=== PATIENT | female | born 1955 | race Caucasian/White ===

== ENCOUNTER 2016-08-19 08:15 | Emergency (ER) | payer BC ==
[~2016-08-19 08:15] MED LIST: IONAMIN DPS15 MG PO; LORTAB LIQUID D15 ML PO; OMEGA-3 DPS1000 MG PO; OMEPRAZOLE40 MG PO; RESTASIS1 EACH OU; TOPAMAX DPS25 MG PO; VOLTAREN50 MG PO; ZOCOR DPS10 MG PO; ZOFRAN8 MG PO
--- NOTE | 2016-09-18 21:14 | ER ---
ADMIT: 08/19/2016 RM/LOC: ER [facility] MR#: [id number] [address] [id number] MARCELINA PLEITEZ [address] [place] [address] Emergency Room Report SEX: F AGE: 60 : 1955 DATE: 08/19/2016 This 60-year-old female who was getting up to go to the bathroom and kitchen when she noticed the room was spinning with movement of her head. She called her daughter who apparently called the ambulance to pick her up. She denied headache. No change in vision. No numbness or tingling anywhere or loss of strength or coordination. Stated that the room was spinning around any time she moved her head rapidly. See T-sheet for history and physical. By the time she arrived in the Emergency Department, the symptoms were largely improved, however, they were reproducible to a lesser extent with rapid movement of her head. She was given meclizine and Zofran with rapid resolution of her complaints, subsequently discharged home. DIAGNOSIS: Vertigo and instructed to follow up with her doctor tomorrow. Anson Yanez MD/ martine JOB #: [id number] CC: Anson Yanez MD, Attending Physician UNKNOWN, Family Physician
== END 2016-08-19 09:39 | disposition home or self-care (01) ==
LOC: ER 08:15
DX: R42 Dizziness and giddiness (principal)

== ENCOUNTER 2016-10-24 09:22 | Emergency (ER) | payer BC ==
--- NOTE | 2016-10-24 15:08 | ER ---
ADMIT: 10/24/2016 RM/LOC: ER [facility] MR#: [id number] [id number] [place], [place] [address] MARCELINA PLEITEZ [address] [place] [address] Emergency Room Report SEX: F AGE: 60 : 1955 DATE: 10/24/2016 ADDENDUM: This 60-year-old morbidly obese, white female coming in with left hip pain. I keep saying right, it is left. She did not fall. She has no other associated trauma with this. This just continues to bother her even if she turns in bed at night. She has not fallen. On top of this, she also has significant stasis dermatitis of her lower legs bilaterally which is chronic. These swell, but she does not use any support hose or anything. It would probably be difficult for her to even do this. At this time, I did x-ray her left hip and it showed degenerative joint disease, also discussed this with the radiologist as it was a little bit difficult to determine whether it was an impacted fracture or this is all DJD. Radiologist thought it was DJD. She was also able to get up and ambulate with this as well. She was using Lortab or [place] from [employer] up in [place], but she is out of those and those have not helped her pain, so I gave her 20 Percocet 5/325 #20 one to two p.o. q.6 p.r.n. pain. She also has a scheduled appointment with the orthopedic surgeon, Dr. Davila on the in [place]. She should follow him and I get more pain medications from him. I did give her 2 of Dilaudid just to ease the pain. CONDITION ON DISCHARGE: Fair. Erlin Kelley MD/ modl JOB #: [id number] CC: Erlin Kelley MD, Attending Physician UNKNOWN, Family Physician ARMAND Hernandez MD
== END 2016-10-24 12:34 | disposition home or self-care (01) ==
LOC: ER 09:22
DX: M16.12 Unilateral primary osteoarthritis, left hip (principal); I10 Essential (primary) hypertension; Z79.899 Other long term (current) drug therapy